=== PATIENT | male | born 1950 | race African-American/Black ===

== ENCOUNTER 2017-07-08 22:46 | Emergency (ER) | payer OTHER, MEDICAID ==
[~2017-07-08] VITALS: Ht 160 cm; Wt 91.5 kg
[~2017-07-08 22:46] MED LIST: ADVAI250I PO; HYDR-2768 PO; IMDU60TA PO; JANU50TA9 PO; KCL20 PO; LISI40TA PO; LORTA10 PO; PERC7.5T13 PO; SULF500T9 PO; TOPR50TA PO; ZOCO40TA PO
[2017-07-08 22:47] VITALS: BP 176/85; PULSE 74; RESP 16; TEMP 98.6; O2SAT 98
[2017-07-08 23:16] VITALS: BP_SYST 140; BP_SYST 149; BP_DIAS 73; BP_DIAS 82; PULSE 70; RESP 18; O2SAT 98
[2017-07-08] MEDS ORDERED: SIMV40TA PO (23:16)
[2017-07-08] MEDS ORDERED: JANU50TA4 PO (23:16)
[2017-07-08] MEDS ORDERED: POTA10CA PO (23:16)
[2017-07-08] MEDS ORDERED: SULF500T34 PO (23:16)
[2017-07-08] MEDS ORDERED: ADVA250A INH (23:16)
[2017-07-08] MEDS ORDERED: HYDR25TA5 PO (23:16)
[2017-07-08] MEDS ORDERED: METO50TA11 PO (23:16)
[2017-07-08] MEDS ORDERED: CLON0.1T PO (23:16)
[2017-07-08] MEDS ORDERED: AMLO10TA2 PO (23:16)
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
--- NOTE | 2017-07-09 00:46 | RADRPT ---
EXAM DATE/TIME: 07/09/2017 00:27 [facility] COMPARISON: No previous studies available for comparison. INDICATIONS : Cephalgia x4 days. RADIATION DOSE: 56.35 CTDIvol (mGy) MEDICAL HISTORY : Cardiovascular disease. Hypertension. Chronic obstructive pulmonary disease.Diabetes. SURGICAL HISTORY : Cholecystectomy. ENCOUNTER: Initial ACUITY: 4 - 6 days PAIN SCALE: 5/10 LOCATION: cranial TECHNIQUE: Multiple contiguous axial images were obtained of the head. Using automated exposure control and adj ustment of the mA and/or kV according to patient size, radiation dose was kept as low as reasonably a chievable to obtain optimal diagnostic quality images. DICOM format image data is available electro nically for review and comparison. FINDINGS: CEREBRUM: The ventricles are normal for age. No evidence of midline shift, mass lesion, hemorrhage or acute in farction. No extra-axial fluid collections are seen. POSTERIOR FOSSA: The cerebellum and brainstem are intact. The 4th ventricle is midline. The cerebellopontine angle i s unremarkable. EXTRACRANIAL: The visualized portion of the orbits is intact. SKULL: Foci expansile lesion in the right parietal bone probably benign. Differential diagnosis includes fib michael dysplasia. No evidence of skull fracture. CONCLUSION: 1. No acute intracranial abnormality. 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 Amol Hobson MD on July 09, 2017 at 0:43 Board Certified Radiologist. This report was verified electronically.
[2017-07-09 01:04] VITALS: BP 150/79; PULSE 67; RESP 16; O2SAT 98
[2017-07-09] MEDS ORDERED: BUTA1CAP PO (01:04)
[2017-07-09] MEDS ORDERED: ACETAMIN 325 MG/BUTALBITAL 50 MG/CAFFEINE 40 MG TAB PO ONE (01:15)
== END 2017-07-09 01:11 | disposition home or self-care (01) ==
LOC: NEPC 22:46
DX: R51 Headache (principal); J44.9 Chronic obstructive pulmonary disease, unspecified; E78.00 Pure hypercholesterolemia, unspecified; J45.909 Unspecified asthma, uncomplicated
CPT/HCPCS: 70450; 99284

== ENCOUNTER 2017-08-07 08:01 | Emergency (ER) | payer OTHER, MEDICAID ==
[~2017-08-07 08:01] MED LIST changes: +ADVA250A INH; -ADVAI250I PO; +AMLO10TA2 PO; +BUTA1CAP PO; +CLON0.1T PO; -HYDR-2768 PO; +HYDR25TA5 PO; -IMDU60TA PO; +JANU50TA4 PO; -JANU50TA9 PO; -KCL20 PO; -LISI40TA PO; -LORTA10 PO; +METO50TA11 PO; -PERC7.5T13 PO; +POTA10CA PO; +SIMV40TA PO; +SULF500T34 PO; -SULF500T9 PO; -TOPR50TA PO; -ZOCO40TA PO
[2017-08-07 08:03] VITALS: BP 147/72; PULSE 71; RESP 14; TEMP 98.4; O2SAT 98
[2017-08-07] MEDS ORDERED: SODIUM CHLOR 0.9% 1000 ML INJ 1,000 ML IV ONE (08:32)
[2017-08-07 08:36] VITALS: BP 158/73; PULSE 72; RESP 16; O2SAT 98
[2017-08-07] MEDS ORDERED: SODIUM CHLORIDE 0.9% FLUSH 10 ML FLUSH IVF PRN (08:45)
[2017-08-07 09:13] LABS: AUTOMATED NEUTROPHIL # 9.2 TH/MM3 (1.8-7.7); BASOPHIL % 0.3 % (0.0-2.0); EOSINOPHIL # 0.1 TH/MM3 (0-0.4); EOSINOPHIL % 0.7 % (0.0-4.0); HEMATOCRIT 40.1 % (39.0-51.0); HEMO FLAGS DIFF FINAL; LYMPH % 10.9 % (9.0-44.0); LYMPHOCYTE # 1.2 TH/MM3 (1.0-4.8); MEAN CELL VOLUME 84.5 FL (80.0-100.0); MEAN CORPUSCULAR HEMOGLOBIN 30.3 PG (27.0-34.0); MEAN CORPUSCULAR HGB CONC 35.8 % (32.0-36.0); MONO % 6.8 % (0.0-8.0); NEUT % 81.3 % (16.0-70.0); PLATELET COUNT 314 TH/MM3 (150-450); RED BLOOD COUNT 4.75 MIL/MM3 (4.50-5.90); RED CELL DISTRIBUTION WIDTH 14.1 % (11.6-17.2); WHITE BLOOD COUNT 11.3 TH/MM3 (4.0-11.0)
[2017-08-07 09:29] LABS: ALKALINE PHOSPHATASE 52 U/L (45-117); BETA-HYDROXYBUTYRATE 0.21 MMOL/L (0.00-0.39); TOTAL BILIRUBIN ADULT 0.5 MG/DL (0.2-1.0)
[2017-08-07 09:33] LABS: ALT (GPT) 20 U/L (12-78); ANION GAP 10 MEQ/L (5-15); AST (GOT) 12 U/L (15-37); BICARBONATE 23.9 MEQ/L (21.0-32.0); BLOOD UREA NITROGEN 20 MG/DL (7-18); CHLORIDE 97 MEQ/L (98-107); GLOMERULAR FILTRATION RATE 75 ML/MIN (>89); MAGNESIUM 1.8 MG/DL (1.5-2.5); SODIUM (NA) 131 MEQ/L (136-145)
[2017-08-07 10:05] LABS: BLOOD, URINE NEG (NEG); COMMENT (UR) CULT NOT INDICATED; CULTURE IF INDICATED CULT NOT INDICATED; GLUCOSE,URINE 1000 mg/dL (NEG); KETONE, URINE NEG (NEG); NITRITE,URINE NEG (NEG); URINE COLOR YELLOW (YELLW/STRAW)
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
== END 2017-08-07 10:30 | disposition left against medical advice (07) ==
LOC: NEPC 08:01
DX: E11.65 Type 2 diabetes mellitus with hyperglycemia (principal); R51 Headache; J44.9 Chronic obstructive pulmonary disease, unspecified; J45.909 Unspecified asthma, uncomplicated; E78.00 Pure hypercholesterolemia, unspecified; I10 Essential (primary) hypertension; K50.90 Crohn's disease, unspecified, without complications; Z79.84 Long term (current) use of oral hypoglycemic drugs; Z79.52 Long term (current) use of systemic steroids
CPT/HCPCS: 80053; 81001; 82010; 83735; 84100; 85025; 99284; J7030